=== PATIENT | male | born 1950 | race Caucasian/White ===

== ENCOUNTER → 2022-05-20 10:13 | Outpatient (BNVA) | payer MEDICARE, MEDICAID, SELFPAY | PROVIDERS: Family Provider Family Medicine; PCP Family Medicine; Visit Provider Nurse Practitioner Family | DX: Z91.09 Other allergy status, other than to drugs and biological substances (principal); H61.23 Impacted cerumen, bilateral; I10 Essential (primary) hypertension; Z12.5 Encounter for screening for malignant neoplasm of prostate; L20.9 Atopic dermatitis, unspecified; L98.9 Disorder of the skin and subcutaneous tissue, unspecified | CPT/HCPCS: 80053; 80061; 84443; 85025; G0103 ==